=== PATIENT | male | born 2000 ===

== ENCOUNTER 2018-04-01 09:43 | Outpatient (CLI) | payer OTHER ==
--- NOTE | 2018-04-01 13:00 | CT ---
CT ABDOMEN AND PELVIS PERFORMED WITH INTRAVENOUS CONTRAST ENHANCEMENT: HISTORY: Abdominal pain, elevated white count, irritable bowel syndrome with diarrhea. FINDINGS: The lung bases are clear. The liver, spleen, pancreas, and gallbladder regions all appear unremarkable. Right and left adrenal glands and right and left kidneys are normal in size. There is no significant periaortic or mesenteric lymphadenopathy. No signs of any bowel wall strictures or masses. No evid ence for bowel wall edema. CT OF PELVIS PERFORMED WITH COTNRAST ENHANCEMENT: Appendix is normal. No adenopathy, mass, or free fluid. Questionable wall thickening to the sigmoid colon. This is probably just on the basis of under distention. IMPRESSION: No acute abnormalities of the abdomen or pelvis. Questionable wall thickening to the sigmoid colon i s probably just on the basis of under distention. POS: [facility]
[2018-04-01] MEDS ORDERED: ISOVUE-370 76%-LOCM 1 ML ONE (14:49)
== END 2018-04-01 09:44 | disposition home or self-care (01) ==
LOC: BICCT 09:43
DX: K58.0 Irritable bowel syndrome with diarrhea (principal)
CPT/HCPCS: 74177